=== PATIENT | female | born 2000 | race Caucasian/White ===

== ENCOUNTER 2022-02-04 15:38 | Emergency (ER) | payer OTHER ==
[2022-02-04] MEDS ORDERED: Ondansetron ODT 4 MG TAB ONE (16:42)
== END 2022-02-04 17:54 | disposition home or self-care (01) ==
LOC: CSHERS 15:38
DX: R11.2 Nausea with vomiting, unspecified (principal); Z87.891 Personal history of nicotine dependence
CPT/HCPCS: 87804; 99284; Q0162

== ENCOUNTER 2022-12-03 13:02 | Emergency (ER) | payer OTHER ==
[2022-12-03] MEDS ORDERED: Dexamethasone 10 MG/ML VIAL ONE (13:47)
[2022-12-03] MEDS ORDERED: Acetaminophen 500 MG TAB ONE (13:47)
[2022-12-03] MEDS ORDERED: Metoclopramide HCl 10 MG/2 ML VIAL ONE (13:48)
[2022-12-03] MEDS ORDERED: Ketorolac Tromethamine 30 MG/ML VIAL ONE (13:48)
[2022-12-03] MEDS ORDERED: diphenhydrAMINE 50 MG/ML VIAL ONE (13:48)
== END 2022-12-03 15:50 | disposition home or self-care (01) ==
LOC: CSHERS 13:02
DX: J32.1 Chronic frontal sinusitis (principal); B96.89 Other specified bacterial agents as the cause of diseases classified elsewhere; Z87.891 Personal history of nicotine dependence
CPT/HCPCS: 96365; 96375; J1100; J1200; J1885; J2765

== ENCOUNTER 2025-05-25 23:02 | Emergency (ER) | payer SELFPAY ==
[2025-05-25] MEDS ORDERED: Ketorolac Tromethamine 30 MG (1 mL) VIAL ONE (23:51)
== END 2025-05-26 01:55 | disposition home or self-care (01) ==
LOC: CSHERS 23:02
DX: M62.838 Other muscle spasm (principal); M54.6 Pain in thoracic spine
CPT/HCPCS: 96372; 99283; J1885